=== PATIENT | male | born 1970 | race African-American/Black ===

== ENCOUNTER 2023-10-13 12:24 | Emergency (ER) | payer MEDICARE, MEDICAID ==
[~2023-10-13] VITALS: Ht 172.7 cm; Wt 75.0 kg
[2023-10-13 12:27] VITALS: O2SAT 100
[2023-10-13] MEDS: CYCLOBENZAPRINE 10MG TABLET PO ONE (13:01)
[2023-10-13] MEDS: ACETAMINOPHEN 325MG TABLET PO ONE (13:01)
[2023-10-13] MEDS ORDERED: NAPR220C61 MT (14:07)
[2023-10-13 14:57] VITALS: BP 149/90; PULSE 90; RESP 18; TEMP 98.2
== END 2023-10-13 15:03 | disposition home or self-care (01) ==
LOC: ER 12:24
DX: S09.90XA Unspecified injury of head, initial encounter (principal); I10 Essential (primary) hypertension; G89.11 Acute pain due to trauma; V49.49XA Driver injured in collision with other motor vehicles in traffic accident, initial encounter; Y93.89 Activity, other specified; Y92.89 Other specified places as the place of occurrence of the external cause; Y99.8 Other external cause status
CPT/HCPCS: 71045; 99284